=== PATIENT | female | born 1955 | race Caucasian/White ===

== ENCOUNTER 2022-11-11 10:39 | Outpatient (CLI) | payer MEDICARE, BC | END 2022-11-11 23:59 | disposition home or self-care (01) | LOC: CARD DIAG 10:39 | PROVIDERS: ATTEND Internal Medicine Cardiovascular Disease | DX: I34.81 Nonrheumatic mitral (valve) annulus calcification (principal); R06.02 Shortness of breath; R00.2 Palpitations; R94.31 Abnormal electrocardiogram [ECG] [EKG]; R07.9 Chest pain, unspecified | CPT/HCPCS: 93306 ==